=== PATIENT | male | born 1995 | race African-American/Black ===

== ENCOUNTER 2017-02-16 22:06 | Emergency (ER) | payer MEDICAID ==
[~2017-02-16] VITALS: Ht 180.3 cm; Wt 73.5 kg
[2017-02-16 22:21] VITALS: BP 125/83
== END 2017-02-17 01:20 | disposition home or self-care (01) ==
LOC: ER 22:08 → EDSEX 22:08 → ER 02-17 01:20
DX: S02.40DA Maxillary fracture, left side, initial encounter for closed fracture (principal); W22.8XXA Striking against or struck by other objects, initial encounter; Y93.89 Activity, other specified; Y99.8 Other external cause status; Y92.89 Other specified places as the place of occurrence of the external cause
CPT/HCPCS: 70486